=== PATIENT | female | born 1965 | race Caucasian/White ===

== ENCOUNTER 2017-01-11 14:50 | Emergency (ER) | payer SELFPAY ==
[2017-01-11] MEDS ORDERED: NORMAL SALINE 1000 ML 1,000 ML IV ONE ×2 (15:12→15:22)
[2017-01-11] MEDS ORDERED: DIPHENHYDRAMINE HCL 50 MG/ML VIAL IV ONE (15:13)
[2017-01-11] MEDS ORDERED: DEXAMETHASONE SOD PHOS INJ 10 MG/1 ML VIAL IV ONE (15:14)
[2017-01-11] MEDS ORDERED: FAMOTIDINE INJ/PF 20 MG/2 ML SDV IV ONE (15:15)
--- NOTE | 2017-01-11 15:20 | ER Document Report ---
ED Allergic Reaction - General Chief Complaint: Allergic Reaction Stated Complaint: SKIN PROBLEM TRAVEL OUTSIDE OF THE [place] IN LAST 30 DAYS: No - HPI Onset: This morning Onset/Duration: Gradual, Constant Quality of pain: Burning, Other - ITCHING Severity: Moderate Identified cause: Possibly - SPENT NIGHT IN [employer] LAST PM Other exposure: Other - WONDERS ABOUT BEDBUGS Skin rash / itching: Trunk, Extremities, "Redness", "Hives" Swelling: Face Associated symptoms: Lightheaded Similar symptoms previously: No Recently seen / treated by doctor: No - Related Data Allergies/Adverse Reactions: Penicillins Allergy (Verified 06/12/16 12:53) Past Medical History - General Information source: Patient - Social History Smoking Status: Unknown if Ever Smoked Lives with: Friend Family History: CAD, CVA, DM, Hyperlipidemia, Hypertension, Malignancy, Thyroid Disfunction. denies: Arthritis Patient has suicidal ideation: No Patient has homicidal ideation: No - Past Medical History Cardiac Medical History: Reports: Hx Coronary Artery Disease, Hx Heart Attack, Hx Hypercholesterolemia, Hx Hypertension Pulmonary Medical History: Reports: Hx Asthma, Hx Pneumonia EENT Medical History: Reports: None Neurological Medical History: Reports: None Endocrine Medical History: Reports: None Renal/ Medical History: Reports: None. Denies: Hx Peritoneal Dialysis Malignancy Medical History: Reports: Hx Cervical Cancer, Hx Ovarian Cancer GI Medical History: Reports: Hx Irritable Bowel. Denies: Hx Colonoscopy, Hx Endoscopy Musculoskeltal Medical History: Reports Hx Musculoskeletal Deformity, Reports Hx Musculoskeletal Trauma Skin Medical History: Reports Hx Cellulitis Psychiatric Medical History: Reports: None Traumatic Medical History: Reports: Hx Fractures - right elbow adn finger and ankle Past Surgical History: Reports: Hx Adenoidectomy, Hx Gynecologic Surgery, Hx Hysterectomy, Hx Tonsillectomy - Immunizations Immunizations up to date: Yes Hx Diphtheria, Pertussis, Tetanus Vaccination: Yes - 2011 Review of Systems - Review of Systems Constitutional: Weakness. denies: Chills, Diaphoresis, Fever EENT: No symptoms reported Cardiovascular: Dizziness, Lightheaded. denies: Dyspnea, Syncope Respiratory: No symptoms reported. denies: Short of breath, Wheezing Gastrointestinal: No symptoms reported Genitourinary: No symptoms reported Female Genitourinary: No symptoms reported Musculoskeletal: No symptoms reported Skin: See HPI Neurological/Psychological: See HPI Physical Exam - Vital signs Vitals: Temp Pulse Resp BP Pulse Ox 98.1 F 120 H 24 H 109/73 95 01/11/17 14:54 01/11/17 14:54 01/11/17 14:54 01/11/17 14:54 01/11/17 14:54 Interpretation: Hypotensive, Tachycardic, Tachypneic. No: Hypoxic, Febrile - General General appearance: Appears well, Alert In distress: None - HEENT Head: Normocephalic Eyes: Normal Conjunctiva: Normal Ears: Normal Nasal: Normal Mouth/Lips: Normal Mucous membranes: Normal Pharynx: Normal Neck: Normal - Respiratory Respiratory status: No respiratory distress Breath sounds: Normal - Cardiovascular Rhythm: Regular, Tachycardia - Abdominal Inspection: Normal, Obese - Extremities General upper extremity: Normal inspection General lower extremity: Normal inspection - Neurological Neuro grossly intact: Yes Cognition: Normal Orientation: AAOx4 - Psychological Associated symptoms: Normal affect, Normal mood - Skin Skin Temperature: Warm Skin Moisture: Dry Skin Color: Normal Skin Turgor: Elastic Skin irregularity: Erythema, Rash Location of irregularity: Abdomen, Chest, Back, Extremities, Other - NONE IN INTERTRIGINOUS AREAS Character of irregularity: Macular, Papular, Confluent - SOME, Erythematous, Urticarial, Other - FEW VESICULAR LESIONS ON L.E.'s Course - Vital Signs Vital signs: Temp Pulse Resp BP Pulse Ox 98.1 F 120 H 24 H 109/73 95 01/11/17 14:54 01/11/17 14:54 01/11/17 14:54 01/11/17 14:54 01/11/17 14:54 Discharge - Discharge Clinical Impression: Allergic reaction, urticaria Condition: Stable Disposition: HOME, SELF-CARE Instructions: Acute Allergic Reaction ([facility]), Use of Diphenhydramine, Acid- Suppressing Medication ([facility]), Corticosteroid Medication ([facility]), Intravenous (IV) Fluids ([facility]) Additional Instructions: REST, DRINK PLENTY OF FLUIDS. TAKE PEPCID (FAMOTIDINE), 20 mg TWICE A DAY. TAKE BENADRYL (DIPHENHYDRAMINE), 25-50 mg EVERY 4 TO 6 HOURS NEEDED FOR ITCHING. TAKE PREDNISONE DIRECTED, BEGINNING TOMORROW (THURSDAY). RETURN TO E.R. IF YOU GET WORSE, ANY TIME. Prescriptions: Prednisone [Deltasone 10 mg Tablet] 10 mg PO ASDIR PRN #21 tablet PRN Reason:
[2017-01-11 19:51] VITALS: BP 119/67
== END 2017-01-11 19:57 | disposition home or self-care (01) ==
LOC: ER 14:50
DX: L50.0 Allergic urticaria (principal); R06.82 Tachypnea, not elsewhere classified; R00.0 Tachycardia, unspecified; R53.1 Weakness; R42 Dizziness and giddiness; I25.10 Atherosclerotic heart disease of native coronary artery without angina pectoris; I25.2 Old myocardial infarction; I10 Essential (primary) hypertension; J45.909 Unspecified asthma, uncomplicated; Z85.41 Personal history of malignant neoplasm of cervix uteri; Z85.43 Personal history of malignant neoplasm of ovary
CPT/HCPCS: 99283; 96361; 96374; 96375; J1200; J7030; S0028; J1100

== ENCOUNTER 2017-02-19 15:29 | Emergency (ER) | payer SELFPAY ==
--- NOTE | 2017-02-19 15:38 | ER Document Report ---
ED Fall - General Mode of Arrival: Medic Information source: Patient, Emergency Med Personnel TRAVEL OUTSIDE OF THE [place] IN LAST 30 DAYS: No - HPI Patient complains to provider of: Back Pain Occurred: Yesterday Where: Work Context: Slipped Location of injury/pain: Back - General Chief Complaint: Back Pain Stated Complaint: FALL/BACK PAIN Time Seen by Provider: 02/19/17 15:36 Notes: Patient is an intoxicated 51-year-old female, with history of seizures, presenting to the emergency department via EMS concerned back pain onset yesterday after she slipped at work at [employer], but caught herself prior to falling. EMS reports the patient being intoxicated with normal vital signs. Patient describes the pain as worsening since the event and having difficulty standing due to the pain shooting up the right side of her back. Patient denies any numbness or tingling. Patient reports taking a friend's Naproxen for the pain without any improvement. Patient reports having had 2 beers today as they were celebrating a few days early. (WILTON HANDLEY) - Related data Allergies/Adverse Reactions: Penicillins Allergy (Verified 06/12/16 12:53) Past Medical History - General Information source: Patient, [facility] Records - Social History Smoking Status: Current Every Day Smoker Cigarette use (# per day): Yes Chew tobacco use (# tins/day): No Frequency of alcohol use: Heavy Drug Abuse: None Family History: Reviewed & Not Pertinent, CAD, CVA, DM, Hyperlipidemia, Hypertension, Malignancy, Thyroid Disfunction. denies: Arthritis - Past Medical History Cardiac Medical History: Reports: Hx Coronary Artery Disease, Hx Heart Attack, Hx Hypercholesterolemia, Hx Hypertension Pulmonary Medical History: Reports: Hx Asthma, Hx Pneumonia Neurological Medical History: Reports: Hx Seizures - Dilantin Malignancy Medical History: Reports: Hx Cervical Cancer, Hx Ovarian Cancer GI Medical History: Reports: Hx Irritable Bowel. Denies: Hx Colonoscopy, Hx Endoscopy Musculoskeltal Medical History: Reports Hx Musculoskeletal Deformity, Reports Hx Musculoskeletal Trauma Skin Medical History: Reports Hx Cellulitis Traumatic Medical History: Reports: Hx Fractures - right elbow adn finger and ankle Past Surgical History: Reports: Hx Adenoidectomy, Hx Gynecologic Surgery, Hx Hysterectomy, Hx Tonsillectomy - Immunizations Immunizations up to date: Yes Hx Diphtheria, Pertussis, Tetanus Vaccination: Yes - 2011 Review of Systems - Review of Systems Constitutional: No symptoms reported EENT: No symptoms reported Cardiovascular: No symptoms reported Respiratory: No symptoms reported Gastrointestinal: No symptoms reported Genitourinary: No symptoms reported Female Genitourinary: No symptoms reported Musculoskeletal: See HPI, Back pain - Right-sided Skin: No symptoms reported Hematologic/Lymphatic: No symptoms reported Neurological/Psychological: No symptoms reported Physical Exam - Vital signs Vitals: Temp Pulse Resp BP Pulse Ox 98.0 F 76 16 100/52 L 95 02/19/17 16:40 02/19/17 16:40 02/19/17 16:40 02/19/17 16:40 02/19/17 16:40 - Notes Notes: GENERAL: Alert, intoxicated. No acute distress. HEAD: Normocephalic, atraumatic. EYES: Pupils equal, round, and reactive to light. Extraocular movements intact. ENT: Oral mucosa moist, tongue midline. NECK: Full range of motion. Supple. Trachea midline. LUNGS: Clear to auscultation bilaterally, no wheezes, rales, or rhonchi. No respiratory distress. HEART: Regular rate and rhythm. No murmurs, gallops, or rubs. BACK: Tenderness to palpation over lower thoracic paraspinal muscles, R>L. No midline tenderness to palpation. No stepoff or deformities. Patient able to straighten back, although complains of pain. EXTREMITIES: Moves all 4 extremities spontaneously. Able to heal walk and toe walk. No edema, radial and dorsalis pedis pulses 2/4 bilaterally. No cyanosis. NEUROLOGICAL: Alert and oriented x3. Normal speech. Biceps and patellar DTRs 2+ bilaterally. PSYCH: Intoxicated. SKIN: Warm, dry, normal turgor. No rashes or lesions noted. (WILTON HANDLEY) Course - Re-evaluation Re-evalutation: 02/19/17 15:49 Consistent with a strained muscle, will treat with ice, rest, anti- inflammatories, stretching exercises and muscle relaxers and discharged home ( DOMINICK BASHIR) - Vital Signs Vital signs: Temp Pulse Resp BP Pulse Ox 98.0 F 76 16 100/52 L 95 02/19/17 16:40 02/19/17 16:40 02/19/17 16:40 02/19/17 16:40 02/19/17 16:40 Discharge - Discharge Clinical Impression: Strain of thoracic paraspinal muscles excluding T1 and T2 levels Qualifiers: Encounter type: initial encounter Qualified Code(s): S29.012A - Strain of muscle and tendon of back wall of thorax, initial encounter Condition: Stable Disposition: HOME, SELF-CARE Instructions: Stretching Exercises for the Back ([facility]), Upper Back Strain ([facility]) Additional Instructions: Please use ibuprofen (Motrin or Advil) 600-800 mg every 8 hours as needed for pain or fever. You may also use acetaminophen (Tylenol) 1000 mg every 4-6 hours as needed for pain or fever. Please be aware that many medications contain acetaminophen, do not exceed a total of 1000 mg of acetaminophen every 6 hours. Prescriptions: Methocarbamol [Robaxin 750 mg Tablet] 750 mg PO ASDIR PRN #40 tablet PRN Reason: Forms: Return to Work Referrals: DWAIN ROBERTSON MD [ACTIVE STAFF] - Follow up as needed Scribe Attestation: 02/19/17 23:26 I personally performed the services described in the documentation, reviewed and edited the documentation which was dictated to the scribe in my presence, and it accurately records my words and actions. (DOMINICK BASHIR) Scribe Documentation - Scribe Written by Luiz:: Luiz Phelan, 02/19/2017 1537 acting as scribe for :: Genevieve
[2017-02-19 16:40] VITALS: BP 100/52
== END 2017-02-19 16:50 | disposition home or self-care (01) ==
LOC: ER 15:29
DX: S29.012A Strain of muscle and tendon of back wall of thorax, initial encounter (principal); W18.40XA Slipping, tripping and stumbling without falling, unspecified, initial encounter; Y92.511 Restaurant or cafe as the place of occurrence of the external cause; Y99.0 Civilian activity done for income or pay; F10.129 Alcohol abuse with intoxication, unspecified; I25.10 Atherosclerotic heart disease of native coronary artery without angina pectoris; I25.2 Old myocardial infarction; I10 Essential (primary) hypertension; J45.909 Unspecified asthma, uncomplicated; F17.210 Nicotine dependence, cigarettes, uncomplicated; Z82.41 Family history of sudden cardiac death; Z85.43 Personal history of malignant neoplasm of ovary; Z88.0 Allergy status to penicillin
CPT/HCPCS: 99283